=== PATIENT | female | born 2000 | race Caucasian/White ===

== ENCOUNTER 2021-05-18 17:18 | Emergency (ER) | payer OTHER | END 2021-05-18 19:35 | disposition home or self-care (01) | LOC: JD.ED 17:18 | DX: S09.90XA Unspecified injury of head, initial encounter (principal); S16.1XXA Strain of muscle, fascia and tendon at neck level, initial encounter; V57.5XXA Driver of pick-up truck or van injured in collision with fixed or stationary object in traffic accident, initial encounter | CPT/HCPCS: 36415; 70450; 70450-26; 72125; 72125-26; 80053; 85025; 85610; 99284-25 ==